=== PATIENT | male | born 1985 | race Caucasian/White ===

== ENCOUNTER 2019-01-20 08:37 | Outpatient (CLI) | payer BC ==
--- NOTE | 2019-01-20 09:49 | ULT ---
BILATERAL RENAL ULTRASOUND: Date: 01/20/19 HISTORY: Renal failure. FINDINGS: The right kidney measures 11.6 cm in length and the left kidney measures 11.8 cm in length. No mass o r hydronephrosis is seen on either side. The urinary bladder is well distended with a volume of 259 m L and is unremarkable. IMPRESSION: No significant abnormalities are seen. POS: [facility]
== END 2019-01-20 08:38 | disposition home or self-care (01) ==
LOC: BICULT 08:37
PROVIDERS: ATTEND Internal Medicine Nephrology
DX: N17.9 Acute kidney failure, unspecified (principal)
CPT/HCPCS: 76770